=== PATIENT | male | born 2000 | race African-American/Black ===

== ENCOUNTER 2025-03-20 20:57 | Emergency (ER) | payer MEDICAID ==
[~2025-03-20] VITALS: Ht 177.8 cm; Wt 77.0 kg
[~2025-03-20 20:57] MED LIST: LACO100T2 MT; LEVE1000 MT
[2025-03-20 21:06] VITALS: O2SAT 99
[2025-03-20] MEDS: LORAZEPAM 2MG/ML UD SYRINGE IV SCH (21:22)
[2025-03-20] MEDS: LORAZEPAM 2MG/ML INJ IV ONE (21:22)
[2025-03-20] MEDS: LEVETIRACETAM 500MG PREMIX 100 ML IV ONE (22:07)
[2025-03-20 22:48] LABS: BASOPHILS % 0.6 % (0.0-2.0); EOSINOPHILS % 2.4 % (0.0-5.0); HEMATOCRIT. 45.9 % (42.0-52.0); HEMOGLOBIN. 14.6 g/dL (14.0-18.0); LYMPHOCYTES % 33.4 % (20.0-50.0); MEAN CORPUSCULAR HEMOGLOBIN 25.8 pg (28.0-32.0); MEAN CORPUSCULAR HGB CONC 31.7 g/dL (31.0-37.0); MEAN CORPUSCULAR VOLUME 81.4 fL (80.0-94.0); MEAN PLATELET VOLUME 9.7 fl (7.4-10.4); MONOCYTES % 7.3 % (2.0-8.0); NEUTROPHILS % 56.3 % (40.0-76.0); PLATELET 219 x1000/uL (130-400); RED BLOOD CELL COUNT 5.64 mill/uL (4.7-6.1); RED CELL DISTRIBUTION WIDTH 14.6 % (11.6-14.6); WHITE BLOOD COUNT 11.9 x1000/uL (4.5-11.0)
[2025-03-20 22:53] LABS: CHLORIDE 106 mEq/L (98-107); POTASSIUM 3.7 mEq/L (3.5-5.1); SODIUM 141 mEq/L (136-145)
[2025-03-20 22:54] LABS: CALCIUM 9.5 mg/dL (8.7-10.4); CARBON DIOXIDE 11 mEq/L (21-32)
[2025-03-20 22:59] LABS: CREATININE 1.4 mg/dL (0.6-1.3); GLUCOSE 102 mg/dL (70-105); UREA NITROGEN BLOOD 9 mg/dL (9-23)
[2025-03-20 23:00] LABS: TROPONIN I HIGH SENSITIVITY < 4 ng/L (3.0-53)
[2025-03-20 23:01] LABS: ALANINE AMINOTRANSFERASE 16 IU/L (10-49); ALBUMIN 4.9 g/dL (3.2-4.8); ASPARTATE AMINOTRANSFERASE 21 IU/L (<34); BILIRUBIN DIRECT < 0.1 mg/dL (<=3.0); BILIRUBIN TOTAL 0.3 mg/dL (0.1-1.0); PROTEIN TOTAL 8.4 g/dL (6.0-8.3)
[2025-03-21] MEDS ORDERED: ACETAMINOPHEN 325MG TABLET PO PRN ×2 (01:45)
[2025-03-21] MEDS ORDERED: MAGNESIUM/ALUMINUM HYDROXIDE/SIMETHICONE 30ML UDC PO PRN (01:45)
[2025-03-21] MEDS ORDERED: CLONIDINE 0.1MG TABLET PO PRN (01:45)
[2025-03-21] MEDS ORDERED: ONDANSETRON HCL 4MG/2ML INJ IV PRN (01:45)
[2025-03-21] MEDS ORDERED: DOCUSATE SODIUM 100MG CAPSULE PO PRN (01:45)
[2025-03-21] MEDS ORDERED: IPRATROPIUM/ALBUTEROL 0.5-3(2.5)MG/3ML NEB HHN PRN (01:45)
[2025-03-21] MEDS ORDERED: GUAIFENESIN 200MG/10ML SUGAR FREE UDC PO PRN (01:45)
[2025-03-21 01:56] VITALS: BP 123/60; PULSE 81; RESP 14; TEMP 37.2; O2SAT 99
[2025-03-21] MEDS ORDERED: DIVALPROEX SODIUM 250MG DR TABLET PO SCH (06:00)
[2025-03-21] MEDS ORDERED: PANTOPRAZOLE 40MG DR TABLET PO SCH (07:50)
[2025-03-21] MEDS ORDERED: LEVETIRACETAM 500MG/5ML CUP PO SCH (09:00)
[2025-03-21] MEDS ORDERED: LACOSAMIDE 100MG TABLET PO SCH (09:00)
== END 2025-03-21 02:06 | disposition left against medical advice (07) ==
LOC: ER 20:57 → EDBEDREQ 03-21 00:27 → ENRESERV 03-21 01:13 → ER 03-21 02:06
DX: R56.9 Unspecified convulsions (principal); Z79.899 Other long term (current) drug therapy
CPT/HCPCS: 80076; 80048; 82962; 85025; 84484; 36415; 71045; 70450; 93005; 96365; 96375; 99285; J1953; J2060; Z7610